=== PATIENT | female | born 1990 | race Caucasian/White ===

== ENCOUNTER 2016-06-24 17:19 | Emergency (ER) | payer OTHER ==
[2016-06-24 17:34] VITALS: BP 127/82
[2016-06-24] MEDS ORDERED: Ondansetron ODT TAB* 4 MG PO ONE ×3 (17:37→20:28)
--- NOTE | 2016-06-24 18:32 | UC ---
Abdominal Pain Female HPI - HPI Summary HPI Summary: The patient comes in today for: 1. Abdominal pain: Onset: 4 hours ago. Palliative/provocative: Nothing makes it better or worse. Quality: Cramping pain. Region: Generalized in abdomen Severity: 8/10 Time: Constant. Associated symptoms: Fever: None. 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 Vomitin times with no mucous or blood known--no coffee ground material. Diarrhea: 12 stools--brown liquid--no blood mucous or pus. Intestinal problems: She has a history of reflux diagnosed 1-2 years ago. She was on omeprazole in the past but she has been off it for about 1 year. Urination: Urination "has cut back quite a bit." * - History of Current Complaint Chief Complaint: UCGI Stated Complaint: ABD PAIN Time Seen by Provider: 06/24/16 18:26 Hx Obtained From: Patient Hx Last Menstrual Period: 2 WEEKS ?: No Allergies/Adverse Reactions: Allergies Allergy/AdvReac Type Severity Reaction Status Date / Time Penicillins Allergy Unknown Unknown Verified 06/24/16 17:28 Reaction Details Sucralfate [From Carafate] Allergy Swelling Verified 02/26/15 13:16 Of Face,Lips,& Throat PMH/Surg Hx/FS Hx/Imm Hx Previously Healthy: No - Family planning/BCP Endocrine History Of: Denies: Diabetes, Thyroid Disease, Hyperthyroidism, Hypothyroidism, Dyslipidemia Cardiovascular History Of: Denies: Cardiac Disorders, Hypertension, Pacemaker/ICD, Myocardial Infarction , Congestive Heart Failure, Atrial Fibrillation, Deep Vein Thrombosis, Bleeding Disorders Respiratory History Of: Denies: COPD, Asthma, Bronchitis, Pneumonia, Pulmonary Embolism GI/ History Of: Reports: Gastroesophageal Reflux - She is off medication. Denies: Ulcer, Gastrointestinal Bleed, Gall Bladder Disease, Kidney Stones, Diverticulitis, Renal Disease, Urosepsis Neurological History Of: Denies: TIA, CVA, Dementia, Seizures, Migraine Psychological History Of: Denies: Anxiety, Depression, Bipolar Disorder, Schizophrenia, Post Traumatic Stress Disorder Cancer History Of: Denies: Lung Cancer, Colorectal Cancer, Breast Cancer, Prostate Cancer, Cervical Cancer - Surgical History Surgical History: Yes Surgery Procedure, Year, and Place: \\SURGICAL REAPIS OF DISLOCATED [place] RIGHT [place] - Family History Known Family History: Positive: Hypertension Negative: Cardiac Disease - Social History Occupation: Student Alcohol Use: None Substance Use Type: None Smoking Status (MU): Never Smoked Tobacco Review of Systems Constitutional: Negative Skin: Negative Eyes: Negative ENT: Negative Cardiovascular: Negative Gastrointestinal: Abdominal Pain, Vomiting, Diarrhea Genitourinary: Negative All Other Systems Reviewed And Are Negative: Yes Physical Exam Triage Information Reviewed: Yes Appearance: Well-Appearing, No Pain Distress, Well-Nourished Vital Signs: Initial Vital Signs Temp 98.8 F 06/24/16 17:28 Pulse 111 06/24/16 17:28 Resp 18 06/24/16 17:28 BP 127/82 06/24/16 17:28 Pulse Ox 100 06/24/16 17:28 Vital Signs Reviewed: Yes Eyes: Positive: Conjunctiva Clear. Negative: Discharge ENT: Positive: Hearing grossly normal. Negative: Pharyngeal erythema, Nasal congestion, Nasal drainage, TM bulging, TM dull, TM red, Tonsillar swelling, Tonsillar exudate Dental: Negative: Gross Decay/Caries @, Dental Fracture @ Neck: Positive: Supple, Nontender, No Lymphadenopathy. Negative: Nuchal Rigidity Respiratory: Positive: Chest non-tender, Lungs clear, No respiratory distress, No accessory muscle use. Negative: Crackles, Wheezing Cardiovascular: Positive: RRR, No Murmur Abdomen Description: Positive: No Organomegaly, Soft. Negative: Nontender - Initially, before hydration, she had diffuse, non-focal tenderness. There was no rebound or percussion tenderness., Distended, Guarding, Peritoneal Signs Bowel Sounds: Positive: Present Musculoskeletal: Positive: Strength Intact, ROM Intact, No Edema Neurological: Positive: Alert, Muscle Tone Normal Psychological: Positive: Age Appropriate Behavior. Negative: Consolable Skin: Negative: rashes, breakdown Diagnostics - Laboratory Diagnostic Studies Completed/Ordered: Urine test: (-). Urine screen: Specific gravity: 1.-35. WBC: 25. Nitrite: (-). Blood: (-). Protein: 30. Glucose: (-) Re-Evaluation - Re-Evaluation First Eval Change: Improved - The patient states with IV fluid that she is much improved. Her abdominal pain dropped from Comment: She states that her abdominal pain dropped from 8/10 to 1/10 and she does not have any nausea at this time. Her abdominal exam was much improved with her complaining of only a 1/10 abdominal pain. Abd Pain Female Course/Dx - Course Course Of Treatment: Patient was told that I found no obvious focal tenderness on her abdominal exam, but did see that she was quite dehydrated. She was told that sometimes hydration can reduce the abdominal pain, but otherwise we did not have anything more to offer her for figuring out what the pain is from or treatment (other than another dose of Zofran). She wanted to try more Zofran and IV fluids. Then she will decide if she will be going to the ER. Even though the patient states that she has an improvement in her abdominal pain, she was told that I don't know for sure what is causing her pain. The patient was also told that there are many causes for abdominal pain--. some which are benign and some which are life-threatening. Furthermore, it was. mentioned that the life-threatening causes of abdomianl pain can present with. minimal, atypical, or even no symptoms. Becasue of these facts and the fact. that we don't have here all the testing methods commonly used to assess abdominal. pain , and their timely resuts, my recommendation is for the patient to go to. the closest [place] [place]. However, considering how much she has improved, she wants to continue fluids at home and anti-cramping and anti-nausea medication. - Differential Dx/Diagnosis Provider Diagnoses: ABdominal pain. Discharge - Discharge Plan Condition: Stable Disposition: AGAINST MEDICAL ADVICE Prescriptions: Hyoscyamine Sulfate 1 - 2 tab PO Q4H PRN #40 tab PRN Reason: abdominal cramps Ondansetron ODT TAB* [Zofran Odt TAB*] 4 mg PO Q8H PRN #40 tab.odt PRN Reason: Nausea Patient Education Materials: Abdominal Pain (ED) Forms: *School Release Referrals: Mei Gallo MD [Primary Care Provider] - As Soon As Possible (If you are not going to the ER, please see your primary care provider as soon as you can. If you get worse, please be seen sooner.)
[2016-06-24] MEDS ORDERED: D5NS 0.9% 1000 ML BAG* 1,000 ML IV SCH (19:00)
== END 2016-06-24 20:37 | disposition left against medical advice (07) ==
LOC: UCEAST 17:19
DX: R10.84 Generalized abdominal pain (principal); R11.10 Vomiting, unspecified; R19.7 Diarrhea, unspecified
CPT/HCPCS: 81002; 81025; 87086; 96360; 96361; 99213; A9270-GY; G0463